=== PATIENT | female | born 1995 | race Caucasian/White ===

== ENCOUNTER 2018-12-04 04:47 | Emergency (ER) | payer OTHER, SELFPAY ==
[2018-12-04 04:59] VITALS: BP 170/137; PULSE 70; RESP 14; TEMP 36.9; O2SAT 95; BMI 19.3
--- NOTE | 2018-12-04 05:07 | DI.US.S_ITS ---
PROCEDURE: US PELVIC COMPLETE INDICATIONS: LEFT SIDED PAIN TECHNIQUE: Real-time scanning was performed of the pelvic organs, with image documentation. Additional endovaginal scanning was necessary due to incomplete visualization of the adnexal and endometrial structures by transabdominal scanning. COMPARISON: None. FINDINGS: Transabdominal scanning: Limited scanning through the kidneys shows no hydronephrosis. No pathologic free abdominal or pelvic fluid. Small amount of physiologic free fluid within the pelvis. Endovaginal scanning: Uterus: Uterus is normal in size at 8.1 x 4.5 x 4.5 cm. The endometrium is not well-seen. An intrauterine device is present. Ovaries: Demonstrate intact arterial flow bilaterally. There is a 46 mm complex nonvascular structure within the right ovary. There is a 57 mm complex nonvascular structure within the left ovary. IMPRESSION: 1. No evidence of acute process. No evidence of portal at the time of the examination. 2. Intrauterine device is in place. 3. Complex bilateral ovarian structures as described above. Given their size, followup ultrasound in 6 weeks is recommended to ensure resolution, and to exclude underlying malignancy. Concordant with preliminary interpretation. Dictated by: Cathie Suarez M.D. on 12/04/2018 at 7:41 Approved by: Cathie Suarez M.D. on 12/04/2018 at 7:43
--- NOTE | 2018-12-04 05:16 | ED.FEMALEGU ---
HPI - Female Genitourinary General Chief complaint: Urogenital-Female Stated complaint: Lower pelvic pain Time Seen by Provider: 12/04/18 04:58 Source: patient Mode of arrival: ambulatory Limitations: no limitations History of Present Illness HPI Narrative: Patient is a 23-year-old who presents with sudden onset left lower quadrant pain. She said last evening she was started doing okay and then it came on suddenly. She took some ibuprofen it did not seem to help. She woke up and her pain is worse. She has no painful or frequent urination. No vaginal bleeding she has an IUD placed. Complaint: pelvic pain Onset (ago): day(s) (1) Location: Q Duration: constant Related Data Home Medications Medication Instructions Recorded Confirmed No Known Home Medications 04/20/18 04/20/18 Allergies Allergy/AdvReac Type Severity Reaction Status Date / Time No Known Drug Allergies Allergy Unverified 04/20/18 15:42 Review of Systems Review of Systems GENERAL: Denies chills, fatigue, malaise, fever, sweats, travel HEENT: Denies sinus pain, ear pain, sore throat, difficulty swallowing, neck pain RESPIRATORY: Denies dyspnea, cough, wheezing, hemoptysis, sputum. CARDIOVASCULAR: Denies chest pain, palpitations, orthopnea, edema GASTROINTESTINAL: See HPI Denies nausea, vomiting, abdominal pain, diarrhea, constipation, melena. : Denies dysuria, frequency, incontinence, hematuria, urinary retention, flank pain. MUSCULOSKELETAL: Denies weakness, joint pain, or bony pain SKIN: No rash, no erythema, no pruritus NEUROLOGIC: Denies weakness, dizziness, headache, numbness, change in speech, confusion PSYCHIATRIC: No concerning psychosocial issues. 12 point review of systems is negative except for those stated above and HPI [facility] Medical History Patient denies significant medical history (Acute) Social History Smoking Status: Never smoker Social History Smoking Status: Never smoker Exam Initial Vital Signs Initial Vital Signs: Vital Signs Temperature 98.4 F 12/04/18 04:59 Pulse Rate 70 12/04/18 04:59 Respiratory Rate 14 12/04/18 04:59 Blood Pressure 170/137 H 12/04/18 04:59 Pulse Oximetry 95 06/15/19 04:59 GENERAL: Well-appearing, well-nourished and in no acute distress. HEENT: Head atraumatic,EOMI, pupils reactive, face symmetric, moist mucous membranes CARDIOVASCULAR: Regular rate and rhythm without murmurs, rubs or gallops. RESPIRATORY: Breath sounds equal bilaterally, no wheezes rales or rhonchi. ABDOMEN: Soft, mild left lower quadrant pain no guarding or rebound EXTREMITIES: Normal range of motion, no clubbing or edema. Neurovascularly intact NEUROLOGICAL: Alert and oriented x4.Normal gait and speech. Cranial nerves II through XII grossly intact. SKIN: Warm, dry, no laceration, no petechiae, no rashes or lesions. Course Orders Ordered: Discontinued Medications Ketorolac Tromethamine (Toradol) 60 mg IM NOW ONE Stop: 12/04/18 05:08 Last Admin: 12/04/18 05:25 Dose: 60 mg Vital Signs - 8 hr 12/04/18 04:59 Temperature 98.4 F Pulse Rate 70 Respiratory Rate 14 Blood Pressure 170/137 H Pulse Oximetry 95 [facility] - Female Genitourinary Lab Data Attestation: I reviewed the patient's lab results. Point of Care Testing Test Results Negative Urine Dip Bedside Urine Glucose Negative Bedside Urine Bilirubin - Negative Bedside Urine Ketone +++ 80 Urine Specific [place] 1.030 Bedside Urine Occult Blood - Negative Bedside Urine pH 6.0 Bedside Urine Protein + 30 Bedside Urine Urobilinogen +/- 1mg Bedside Urine Nitrite - Negative Bedside Urine Leukocytes - Negative Esterase Imaging Data Pelvic ultrasound: Radiologist's impression: castings trimmer report: Bilateral ovarian cystic structures favoring hemorrhagic cyst. Probably present should and intrauterine device. Negative for ovarian torsion. [facility] Narrative Medical decision making narrative: Patient's pain is better after some Toradol. Recommended follow-up ultrasound with PCP or mapping specialist. Discharge Plan Departure Patient Disposition: Home Clinical Impression: Ovarian cyst Qualifiers: Laterality: bilateral Qualified Code(s): N83.201 - Unspecified ovarian cyst, right side Discharge Date/Time: 12/04/18 06:40 Interventions: ED Discharge Assessment Last Done: 12/04/18 06:40 Instructions: Ovarian Cyst Activity Restrictions/Additional Instructions: *You have been diagnosed with bilateral ovarian cyst *What to do: need repeat ultra sound 1-2 months *Continue to take medications as directed Ibuprofen 800 mg every 8 hours if needed for pain *Follow up with your primary care provider in 2-3 days *Return to ER if you should have increasing pain, increased vaginal bleeding [or] any new, worsening or concerning symptoms Prescriptions: No Action No Known Home Medications RF: 0 Referrals: Sweetie Hooper ARNP [Primary Care Provider] -
--- NOTE | 2018-12-04 05:19 | ED_ITS ---
HPI - Female Genitourinary General Chief complaint: Urogenital-Female Stated complaint: Lower pelvic pain Time Seen by Provider: 12/04/18 04:58 Source: patient Mode of arrival: ambulatory Limitations: no limitations History of Present Illness HPI Narrative: Patient is a 23-year-old who presents with sudden onset left lower quadrant pain. She said last evening she was started doing okay and then it came on suddenly. She took some ibuprofen it did not seem to help. She woke up and her pain is worse. She has no painful or frequent urination. No vaginal bleeding she has an IUD placed. Complaint: pelvic pain Onset (ago): day(s) (1) Location: Q Duration: constant Related Data Home Medications Medication Instructions Recorded Confirmed No Known Home Medications 04/20/18 04/20/18 Allergies Allergy/AdvReac Type Severity Reaction Status Date / Time No Known Drug Allergies Allergy Unverified 04/20/18 15:42 Review of Systems Review of Systems GENERAL: Denies chills, fatigue, malaise, fever, sweats, travel HEENT: Denies sinus pain, ear pain, sore throat, difficulty swallowing, neck pain RESPIRATORY: Denies dyspnea, cough, wheezing, hemoptysis, sputum. CARDIOVASCULAR: Denies chest pain, palpitations, orthopnea, edema GASTROINTESTINAL: See HPI Denies nausea, vomiting, abdominal pain, diarrhea, constipation, melena. : Denies dysuria, frequency, incontinence, hematuria, urinary retention, flank pain. MUSCULOSKELETAL: Denies weakness, joint pain, or bony pain SKIN: No rash, no erythema, no pruritus NEUROLOGIC: Denies weakness, dizziness, headache, numbness, change in speech, confusion PSYCHIATRIC: No concerning psychosocial issues. 12 point review of systems is negative except for those stated above and HPI [facility] Medical History Patient denies significant medical history (Acute) Social History Smoking Status: Never smoker Social History Smoking Status: Never smoker Exam Initial Vital Signs Initial Vital Signs: Vital Signs Temperature 98.4 F 12/04/18 04:59 Pulse Rate 70 12/04/18 04:59 Respiratory Rate 14 12/04/18 04:59 Blood Pressure 170/137 H 12/04/18 04:59 Pulse Oximetry 95 06/15/19 04:59 GENERAL: Well-appearing, well-nourished and in no acute distress. HEENT: Head atraumatic,EOMI, pupils reactive, face symmetric, moist mucous membranes CARDIOVASCULAR: Regular rate and rhythm without murmurs, rubs or gallops. RESPIRATORY: Breath sounds equal bilaterally, no wheezes rales or rhonchi. ABDOMEN: Soft, mild left lower quadrant pain no guarding or rebound EXTREMITIES: Normal range of motion, no clubbing or edema. Neurovascularly intact NEUROLOGICAL: Alert and oriented x4.Normal gait and speech. Cranial nerves II through XII grossly intact. SKIN: Warm, dry, no laceration, no petechiae, no rashes or lesions. Course Orders Ordered: Discontinued Medications Ketorolac Tromethamine (Toradol) 60 mg IM NOW ONE Stop: 12/04/18 05:08 Last Admin: 12/04/18 05:25 Dose: 60 mg Vital Signs - 8 hr 12/04/18 04:59 Temperature 98.4 F Pulse Rate 70 Respiratory Rate 14 Blood Pressure 170/137 H Pulse Oximetry 95 [facility] - Female Genitourinary Lab Data Attestation: I reviewed the patient's lab results. Point of Care Testing Test Results Negative Urine Dip Bedside Urine Glucose Negative Bedside Urine Bilirubin - Negative Bedside Urine Ketone +++ 80 Urine Specific [place] 1.030 Bedside Urine Occult Blood - Negative Bedside Urine pH 6.0 Bedside Urine Protein + 30 Bedside Urine Urobilinogen +/- 1mg Bedside Urine Nitrite - Negative Bedside Urine Leukocytes - Negative Esterase Imaging Data Pelvic ultrasound: Radiologist's impression: shift mgr report: Bilateral ovarian cystic structures favoring hemorrhagic cyst. Probably present should and intrauterine device. Negative for ovarian torsion. [facility] Narrative Medical decision making narrative: Patient's pain is better after some Toradol. Recommended follow-up ultrasound with PCP or commercial manager. Discharge Plan Departure Patient Disposition: Home Clinical Impression: Ovarian cyst Qualifiers: Laterality: bilateral Qualified Code(s): N83.201 - Unspecified ovarian cyst, right side Discharge Date/Time: 12/04/18 06:40 Interventions: ED Discharge Assessment Last Done: 12/04/18 06:40 Instructions: Ovarian Cyst Activity Restrictions/Additional Instructions: *You have been diagnosed with bilateral ovarian cyst *What to do: need repeat ultra sound 1-2 months *Continue to take medications as directed Ibuprofen 800 mg every 8 hours if needed for pain *Follow up with your primary care provider in 2-3 days *Return to ER if you should have increasing pain, increased vaginal bleeding [or] any new, worsening or concerning symptoms Prescriptions: No Action No Known Home Medications RF: 0 Referrals: Sweetie Hooper ARNP [Primary Care Provider] -
[2018-12-04] MEDS: KETOROLAC 60 MG/2 ML VIAL IM (05:25)
[2018-12-04 06:40] VITALS: BP 135/75; PULSE 70; RESP 12; O2SAT 98
== END 2018-12-04 06:40 | disposition home or self-care (01) ==
PROVIDERS: Emergency Provider Emergency Medicine; PCP Nurse Practitioner Family
DX: N83.201 Unspecified ovarian cyst, right side (principal)
CPT/HCPCS: 76830; 76856; 81003; 81025; 96372; 99282; 99283; J1885

== ENCOUNTER → 2019-10-20 12:47 | Outpatient (CLI) | payer BC, SELFPAY ==
--- NOTE | 2019-10-20 | DI.US.S_ITS ---
PROCEDURE: US PELVIC COMPLETE INDICATIONS: FOLLOW-UP OVARIAN CYST TECHNIQUE: Real-time scanning was performed of the pelvic organs, with image documentation. Additional endovaginal scanning was necessary due to incomplete visualization of the adnexal and endometrial structures by transabdominal scanning. COMPARISON: [facility], , US PELVIC COMPLETE, 12/04/2018, 5:48. FINDINGS: Transabdominal scanning: Limited scanning through the kidneys shows no hydronephrosis. No pathologic free abdominal or pelvic fluid. Endovaginal scanning: Uterus: Uterus is normal in size at 6.8 x 4.8 x 5.7 cm. The endometrium measures 5.7 mm in combined thickness. There is an IUD in uterine cavity. Ovaries: Right ovary measures 5.1 x 2.4 x 2.1 cm. Left ovary measures 5.2 x 3.3 x 4.3 cm. Multiple ovarian follicles are present bilaterally. There is a 1.7 x 0.9 x 1.0 cm simple cyst in the right ovary. A couple of simple cysts present in the left ovary measuring 2.0 x 2.1 x 2.1 cm and 2.1 x 1.4 x 2.0 cm. Hemorrhagic cysts seen on the last exam in both ovaries are no longer present. IMPRESSION: 1. Resolution of hemorrhagic ovarian cysts. There are several simple cysts in ovaries as described. 2. Ior TE uterus. Dictated by: Jillian Landaverde M.D. on 10/20/2019 at 14:26 Approved by: Jillian Landaverde M.D. on 10/20/2019 at 14:34
== END ==
PROVIDERS: PCP Family Medicine; Referring Provider Family Medicine; Visit Provider Family Medicine
DX: N83.291 Other ovarian cyst, right side (principal); N83.292 Other ovarian cyst, left side; Z97.5 Presence of (intrauterine) contraceptive device
CPT/HCPCS: 76830; 76856

== ENCOUNTER → 2021-12-05 17:26 | Outpatient (CLI) | payer BC, SELFPAY ==
--- NOTE | 2021-12-05 17:31 | DI.RAD.S_ITS ---
PROCEDURE: XR ACUTE ABDOMEN SERIES INDICATIONS: Pelvic pain TECHNIQUE: One view chest and two views of the abdomen were acquired. COMPARISON: None. FINDINGS: Surgical changes and devices: None. Chest: Lungs are clear. Heart size is normal. No pleural effusions. No pneumoperitoneum. Abdomen: Scattered small bowel and colonic gas. No dilated loops of bowel seen. Prominent stool in the colon. No suspicious calcifications. Visualized solid organ contours appear normal. Bones: No suspicious bony lesions. IMPRESSION: No acute cardiopulmonary abnormality. Nonobstructive bowel gas pattern. Prominent stool in the colon. Dictated by: Jayson Aguilar M.D. on 12/06/2021 at 9:35 Approved by: Jayson Aguilar M.D. on 12/06/2021 at 9:45
[2021-12-05 18:37] LABS: Add Manual Diff / Slide Review NO; Basophils Absolute Auto 100 /uL (0-100); Basophils Percent Auto 0.8 % (0-2); Eosinophils Absolute Auto 100 /uL (0-450); Eosinophils Percent Auto 0.6 % (2-4); Hematocrit 36.4 % (36-46); Hemoglobin 12.5 g/dL (12.0-16.0); Lymphocytes Absolute Auto 1600 /uL (1100-4500); Lymphocytes Percent Auto 15.5 % (25-40); Mean Corpuscular HGB Conc 34.3 % (30-36); Mean Corpuscular Hemoglobin 29.5 PG (26-34); Monocytes Absolute Auto 1100 /uL (0-900); Monocytes Percent Auto 10.7 % (3-14); Neutrophils Absolute Auto 7500 /uL (1500-7000); Neutrophils Percent Auto 72.4 % (50-75); Platelet Count 205 X10^3/uL (150-400); Red Blood Cell Count 4.24 X10^6/uL (4.0-5.2); Red Cell Distribution Width 13.2 % (11.6-14.8); White Blood Cell Count 10.4 X10^3/uL (4.5-11.0)
[2021-12-08 15:24] LABS: Alanine Aminotransferase 17 IU/L (<35); Albumin 4.2 g/dL (3.5-5.0); Albumin Globulin Ratio 1.3 (1.0-2.8); Alkaline Phosphatase 56 U/L (38-126); Aspartate Aminotransferase 19 IU/L (14-36); BUN Creatinine Ratio 6.8 (6-22); Bilirubin Total 0.4 mg/dL (0.2-1.3); Blood Urea Nitrogen 4 mg/dL (7-17); Calcium 8.6 mg/dL (8.4-10.2); Carbon Dioxide 27 mmol/L (22-32); Chloride 99 mmol/L (98-107); Estimated Glomerular Filt Rate > 60 mL/min (>60); Globulin 3.2 g/dL (1.7-4.1); Glucose 94 mg/dL (70-100); HEMOLYSIS < 15 (0-50); Potassium 3.6 mmol/L (3.4-5.1); Sodium 137 mmol/L (137-145); Total Protein 7.4 g/dL (6.3-8.2)
[2021-12-08 15:36] LABS: C-Reactive Protein Quant 12.2 mg/dL (<1.0)
[2021-12-08 15:43] LABS: HCG Quantitative /Beta subunit < 2.4 mIU/mL
== END ==
PROVIDERS: PCP Family Medicine; Referring Provider Family Medicine; Visit Provider Family Medicine
DX: R10.9 Unspecified abdominal pain (principal); R10.2 Pelvic and perineal pain; N83.291 Other ovarian cyst, right side
CPT/HCPCS: 36415; 74022; 80053; 84702; 85025; 86140

== ENCOUNTER → 2021-12-11 08:39 | Outpatient (CLI) | payer BC, SELFPAY ==
--- NOTE | 2021-12-11 | DI.US.S_ITS ---
PROCEDURE: US PELVIC COMPLETE INDICATIONS: Pelvic and perineal pain TECHNIQUE: Real-time scanning was performed of the pelvic organs, with image documentation. Additional endovaginal scanning was necessary due to incomplete visualization of the adnexal and endometrial structures by transabdominal scanning. COMPARISON: [facility], , PELVIC COMPLETE, 12/04/2018, 5:48. [facility], , PELVIC COMPLETE, 10/20/2019, 13:11. FINDINGS: Uterus: Uterus is anteverted and normal in size at 9 x 2.9 x 5 cm. The myometrium is homogeneous. The endometrium measures 2.8 mm combined thickness. Ovaries: The right ovary measures 4.7 x 3.7 x 3.3 cm. Within the right ovary, there is a complex nonvascular cyst that measures 2.8 x 2.1 x 2.4 cm. The left ovary measures 2.7 x 2.6 x 2.9 cm. The ovaries have a normal sonographic appearance. Within the right adnexal region, there is a 7.4 x 7.5 x 5 cm nonvascular mass that demonstrates a heterogeneous appearance. Other: No pathologic free abdominal or pelvic fluid. IMPRESSION: Within the right adnexal region, there is a 7.5 cm nonvascular mass. An endometrioma is suspected, although other etiologies are also possible. Right ovarian complex cyst, likely representing a hemorrhagic cyst measuring up to 2.8 cm. If it would be clinically appropriate, a followup pelvic ultrasound could be considered in 6 weeks to assure resolution/ improvement. We strive to produce accurate, complete, and clear reports of imaging services. To assist us in improving patient care, this report was composed using standard report templates and voice recognition software. Therefore, it may contain abnormal punctuation, insertions and/or omissions. Occasional wrong-word or sound-alike substitutions may occur. Though we review the report and make efforts to correct it, we do recommend that the report be read carefully in proper context to recognize any text inaccuracies. Dictated by: Kirill Mendoza M.D. on 12/12/2021 at 15:32 Approved by: Kirill Mendoza M.D. on 12/12/2021 at 15:35
== END ==
PROVIDERS: PCP Family Medicine; Referring Provider Family Medicine; Visit Provider Family Medicine
DX: R10.2 Pelvic and perineal pain (principal); N83.291 Other ovarian cyst, right side; R19.09 Other intra-abdominal and pelvic swelling, mass and lump
CPT/HCPCS: 76830; 76856

== ENCOUNTER → 2021-12-19 07:07 | Outpatient (CLI) | payer BC, SELFPAY ==
[2021-12-19 09:04] LABS: Cancer Antigen 125 85.8 U/mL (0-35)
== END ==
PROVIDERS: PCP Family Medicine; Referring Provider Obstetrics & Gynecology; Visit Provider Obstetrics & Gynecology
DX: N83.209 Unspecified ovarian cyst, unspecified side (principal); N94.89 Other specified conditions associated with female genital organs and menstrual cycle; R10.2 Pelvic and perineal pain
CPT/HCPCS: 36415; 86304

== ENCOUNTER → 2022-01-08 14:59 | Outpatient (CLI) | payer BC, SELFPAY ==
[2022-01-08 16:14] LABS: COVID19 -Nasal RAPID Negative (Negative)
== END ==
PROVIDERS: PCP Family Medicine; Visit Provider Obstetrics & Gynecology
DX: Z01.812 Encounter for preprocedural laboratory examination (principal); Z20.822 Contact with and (suspected) exposure to COVID-19
CPT/HCPCS: 87635

== ENCOUNTER 2022-01-09 08:24 | Day surgery (SDC) | payer BC, SELFPAY ==
[2022-01-03 09:35] VITALS: BMI 20.1
[2022-01-09] VITALS (8 sets, daily range): BP systolic 106–128; BP diastolic 62–83; PULSE 66–95; RESP 10–16; TEMP 36–36.7; O2SAT 80–100; BMI 20.1
--- NOTE | 2022-01-09 | PATH_ITS ---
Note [facility] Accession Number: [id number] TESTS RESULT FLAG UNITS REF RANGE LAB Clinician Provided Cytology Information No. of containers..01 Other (Miscellaneous) Source: PELVIC WASHINGS DIAGNOSIS: PELVIC WASHINGS NEGATIVE FOR MALIGNANT CELLS. THIS INTERPRETATION INCLUDES EVALUATION OF A CELL BLOCK. Pathologist ICD10: 01 N73.9 Signed out by: Joellen Li MD, Pathologist NPI- [id number] Performed by: Juan C Marcelo, Site Inspector ([facility]) Gross description: 30 CC, RED, CLOUDY RECEIVED: FRESH IN ORANGE CAP CONTAINER. /VDU 01/10/[address] [place] [address] FLAG LEGEND: L-Low Normal,H-High Normal,LL-Alert Low,HH-Alert High <-Panic Low,>-Panic High,A-Abnormal,AA-Critical Abnormal Performed at: 01 =Z [facility] [address], [place] [address] Chao Yoo MD, Performed at: 01 [facility] [address], [place], [place] [id number] MD Chao Yoo MD Phone: [phone]
[2022-01-09] MEDS: LACTATED RINGERS 1,000 ML 100 ML IV (09:07)
--- NOTE | 2022-01-09 09:40 | PM.HP.1 ---
History of Present Illness History of Present Illness Date Patient Seen: 01/09/22 Time Patient Seen: 09:42 Chief complaint: RIC Narrative: Patient is a 26-year-old 0 with a right adnexal mass measuring 7.5 cm. She presents for a laparoscopic removal of the right adnexal mass. Patient History Medical History (Updated 01/07/22 @ 21:49 by Karla Sanchez) Ovarian cyst (~2018) Patient denies significant medical history Family & Social History Family History (Updated 01/07/22 @ 21:49 by Karla Sanchez) Grandmother Cancer Social History: household members spouse Tobacco & Substance use: Smoking Status Never smoker alcohol intake current alcohol intake frequency holiday/special occasion Substance Use Type does not use Meds Home Medications and Allergies Home Medications Medication Instructions Recorded Confirmed Type No Known Home Medications 04/20/18 01/03/22 History Allergies Allergy/AdvReac Type Severity Reaction Status Date / Time No Known Drug Allergies Allergy Verified 01/09/22 08:45 Exam Vital Signs (past 8 hours): - 01/09/22 08:50 Temperature 98.1 F Pulse Rate 95 H Respiratory Rate 16 Blood Pressure 117/83 Pulse Oximetry 100 Oxygen Delivery Method Room Air Oxygen Delivery Method Room Air Narrative Exam Narrative: HEENT: No thyromegaly, no anterior cervical or supraclavicular lymphadenopathy. Lungs:Clear to auscultation bilaterally, no wheezes. Cardiovascular: Regular rate and rhythm, no murmurs, rubs, or gallops. Abdomen: No scars. No hepatosplenomegaly. No masses palpable. External genitalia: Normal Vagina: Normal Cervix: Nulliparous Bimanual exam: 6 Week size anterior uterus. Mobile.] Right adnexal fullness and tenderness. Extremities: No edema Assessment & Plan Assessment & Plan narrative: Assessment: 26-year-old 0 with a right adnexal mass consistent with an endometrioma Plan: Laparoscopic removal of the endometrium, possible fulguration of endometriosis, possible chromotubation The risks, benefits, and alternatives to the procedure were explained to the patient. The risks including bleeding, infection, injury to the bowel, bladder, or ureters. She understands these risks and agrees to proceed. A full par Q was held and consent form was signed. COVID-19 COVID-19 status: Negative Result date/Date tested (Pos, Neg/Pending): 01/08/22 Time Spent With Patient Time with patient: less than 30 minutes Critical Care time: I spent a total of [] minutes of critical care time on this patient's care today; this time is exclusive of procedural time.
--- NOTE | 2022-01-09 10:06 | PM.PREOP ---
Pre-operative Note COVID-19 COVID-19 status: Negative Result date/Date tested (Pos, Neg/Pending): 01/08/22 Criteria for continued procedure: Non-surgical alternatives not available or appropriate per current SOC Interval Note History & Physical reviewed/Exam performed by Physician: Yes Changes to H&P: No H&P completed within 30 days and has changed as indicated here:: 01/09/22
[2022-01-09] MEDS: CEFAZOLIN 2 GM/20 ML SYRINGE IV (10:31)
--- NOTE | 2022-01-09 10:43 | SUR.OPER ---
Lithotomy on padded OR bed. [place] Pad Positioner under torso. Head on pillow, arms padded and tucked at sides. Legs secured in padded yellow fins stirrups. Directed and approved by surgeon and PA
[2022-01-09] MEDS: BUPIVACAINE 0.5% (PF) 30 ML, EPINEPHrine 0.15 MG INJ (10:52)
[2022-01-09] MEDS: METHYLENE BLUE 50 MG/10 ML VIAL INJ (11:05)
--- NOTE | 2022-01-09 11:20 | PM.GYNOP.1 ---
Operative Date/Time/Diagnoses Date of procedure: 01/09/22 Time of procedure: 11:20 Pre-op diagnosis: Right adnexal mass Post-op diagnosis: same Procedure & Clinicians Procedure: Procedures Operation Date: 01/09/22 09:45 Actual Procedure Side Surgeon p Laparoscopic Removal of Endometriosis, Fulguration of Endometriosis & chromotubation (inject dye) Estephania Elaine MD Indications: Right adnexal mass Slightly elevated CA-125 Surgeon: Estephania Elaine Ink Grinder: Мария Sanchez Anesthesia Type: General and Local Operative Notes Findings: 12 cm posterior cul dec sac mass adhesed to back of uterus and cul de sac, originating from the left ovary 8 cm right ovarian mass, does not appear cystic No evidence of endometriosis in the ovarian fossa, anterior cul-de-sac, on the appendix, or on the right ovary which could be adequately visualized. Normal appendix Normal liver and gallbladder Closure Type: primary Specimen(s): washings (pelvic) Estimated blood loss (mL): 5 Blood products transfused: none Procedure in detail: After informed consent was obtained, the patient was taken to the operating room where she was placed in the dorsal supine position. After adequate general endotracheal anesthesia was achieved, she was placed in the dorsal lithotomy position, and prepped and draped in the usual sterile fashion. A time-out was performed. A bivalve speculum was placed into the vagina and the anterior lip of the cervix was grasped with a single-tooth tenaculum. The cervical os was sequentially dilated until the Zumi uterine manipulator could pass easily into the endometrial cavity. The single-tooth tenaculum was removed from the anterior lip of the cervix. The bivalve speculum was removed from the vagina. Attention was then turned to the abdomen where 6 cc of 0.5% Marcaine with epinephrine were injected in the umbilical fold. A 5 mm vertical incision was made. The Veress needle was placed into the peritoneal cavity and the placement confirmed by aspiration and drop test. The abdominal cavity was insufflated with 3.0 L of CO2. The Veress needle was removed and a 5 mm trocar was placed without difficulty. Two other incisions were made 4 cm lateral to the umbilicus after 6 cc of 0.5% Marcaine with epinephrine were injected. Two 5 mm trocars were placed under direct visualization. The liver and gallbladder and appendix were visualized and were normal. A probe was placed into the left lateral trocar and the uterus was lifted up. Would appear to be a left ovarian mass that had dropped down behind the uterus was stuck to the posterior uterus. This was gently teased away with the probe. The ovary itself could not be visualized. The left tube was involved in the mass in the posterior cul-de-sac. No endometriosis was seen in the anterior cul-de-sac or on the right tube and ovary. The posterior cul-de-sac mass measured approximately 10 cm. On the right ovary there appear to be a solid mass measuring about 7 cm. This ovary was also stuck to the right pelvic sidewall. Pelvic washings were obtained. A decision was made to close and refer to information lead Oncology due to the risk of a malignancy. The instruments were removed from the abdomen. The CO2 was allowed to escape. The incisions were closed with 4-0 Monocryl in a subcuticular fashion. Steri-Strips and Allevyn dressings were placed. The Zumi uterine manipulator was removed from the uterus. Sponge, lap, and instrument counts were correct x2. The patient tolerated the procedure well, and was taken to PACU in stable condition. Complications: none Post-operative Condition: stable Disposition: PACU Plan for aftercare: Home after recovery
[2022-01-09] MEDS: KETOROLAC 30 MG/ML VIAL IV (11:53)
== END 2022-01-09 13:00 | disposition home or self-care (01) ==
PROVIDERS: PCP Family Medicine; Referring Provider Obstetrics & Gynecology; Visit Provider Obstetrics & Gynecology
PROC: 0U5B4ZZ Destruction of Endometrium, Percutaneous Endoscopic Approach (ICD-10-PCS; CPT 58662; principal; 2022-01-09 09:45)
DX: R19.03 Right lower quadrant abdominal swelling, mass and lump (principal)
CPT/HCPCS: 49320; J0171; J0690; J1885; J2250; J2704; J3010; Q9968

== ENCOUNTER → 2022-01-16 15:33 | Outpatient (CLI) | payer OTHER, SELFPAY ==
[2022-01-16 17:14] LABS: Lactate Dehydrogenase 482 U/L (313-618)
[2022-01-16 17:32] LABS: HCG Quantitative /Beta subunit < 2.4 mIU/mL
[2022-01-17 08:34] LABS: Alpha Fetoprotein 2.7 ng/mL (0.0-4.7)
== END ==
PROVIDERS: PCP Family Medicine; Referring Provider Obstetrics & Gynecology Gynecologic Oncology; Visit Provider Obstetrics & Gynecology Gynecologic Oncology
DX: N83.8 Other noninflammatory disorders of ovary, fallopian tube and broad ligament (principal)
CPT/HCPCS: 36415; 82105; 83520; 83615; 84702

== ENCOUNTER → 2022-01-21 18:54 | Outpatient (CLI) | payer OTHER, SELFPAY ==
--- NOTE | 2022-01-21 19:00 | DI.MRI.S_ITS ---
PROCEDURE: MR PELVIS WO/W CON INDICATIONS: BILATERAL TUBO-OVARIAN MASS TECHNIQUE: Coronal HASTE, sagittal breath-hold T2 FSE; axial T1 FSE with and without fat saturation through the pelvis. Optional long- and short-axis uterine nonbreath-hold T2 FSE through the uterus. Sagittal or axial dynamic VIBE during administration of contrast. Post-contrast axial or coronal VIBE/2-D FLASH with fat saturation from the iliac crests to the symphysis. Optional diffusion weighted imaging and ADC may be performed. COMPARISON: [facility], US, US PELVIC COMPLETE, 12/11/2021, 8:54. FINDINGS: Image quality: Excellent. Uterus: Uterus is normal in size. Normal thickness endometrium and junctional zone. Adnexa: Numerous right ovarian follicles. Ovary is mildly enlarged overall. No dominant mass. Trace intrinsic T1 signal hyperintensity at the superior pole (). Left adnexal complex cystic lesion with T2 shading, loculations, and intrinsic T1 signal hyperintensity measuring 6.1 x 5.4 by 6.1 centimeters. It is difficult to appreciate if there is any enhancing nodule, although none is obvious. The left ovary is not seen separate from this lesion. At the anterolateral aspect of the lesion, there is some extra ovarian intrinsic T1 signal hyperintensity, likely along the fallopian tube. No definite macroscopic fat. Kissing ovaries tethered posteriorly. Urinary system: Bladder wall is normal in thickness. Distal ureters are non distended. Urethra appears normal in morphology. Nodes and vessels: No pelvic or inguinal adenopathy by size criteria. Iliac vessels are normal in size. Bowel and peritoneum: No pathologic free pelvic fluid. Inferior colon and small bowel loops are normal in caliber. Soft tissues: No inguinal hernias. No findings of pelvic floor incompetence in the absence of provocation. Bones: Marrow demonstrates normal overall signal. IMPRESSION: Suspected 6.1 centimeter left ovarian multiloculated endometrioma, punctate foci of deep pelvic endometriosis, and trace left infundibular hematosalpinx. No obvious enhancing nodule, although this is difficult to assess in the setting of intrinsic T1 signal hyperintensity. Differential includes a large hemorrhagic cyst, although this is less likely given persistence from pelvic ultrasound 12/11/2021. Possible small endometrioma or hemorrhagic cyst in a mildly enlarged right ovary. Consider gynecologic consultation for surgical and imaging follow-up. Dictated by: Jef Chappell M.D. on 01/22/2022 at 9:48 Approved by: Jef Chappell M.D. on 01/22/2022 at 10:07
== END ==
PROVIDERS: PCP Family Medicine; Referring Provider Obstetrics & Gynecology Gynecologic Oncology; Visit Provider Obstetrics & Gynecology Gynecologic Oncology
DX: N83.8 Other noninflammatory disorders of ovary, fallopian tube and broad ligament (principal); N80.3 Endometriosis of pelvic peritoneum
CPT/HCPCS: 72197; A9579

== ENCOUNTER → 2022-12-22 12:43 | Outpatient (CLI) | payer OTHER, SELFPAY ==
--- NOTE | 2022-12-22 12:43 | DI.RAD.S_ITS ---
PROCEDURE: HL HYSTEROSAPINGOGRAPHY INDICATIONS: Infertility. Left salpingo-oophorectomy. COMPARISON: MR, MR PELVIS WO/W CON, 01/21/2022, 19:04. US, US PELVIC COMPLETE, 12/11/2021, 8:54. FINDINGS: Patient had a documented negative test prior to the study. Following speculum insertion, a balloon-tip catheter was inserted into the cervical canal, and secured by inflating the balloon. Contrast was then injected into the endometrial canal. Uterus: The uterine cavity appears normal in size and morphology, without synechiae or masses. Fallopian tubes: The right fallopian tubes fill with contrast, and appear normal in caliber and morphology. There is ready dispersion of contrast into the peritoneal cavity. The left fallopian tube is likely, compatible with history of prior surgery. IMPRESSION: 1. Patent right fallopian tube. 2. Left sublingo-oophoectomy. Dictated by: Jillian Landaverde M.D. on 12/22/2022 at 21:22 Approved by: Jillian Landaverde M.D. on 12/22/2022 at 21:26
--- NOTE | 2022-12-24 09:13 | P.PCN_ITS ---
Procedures Date/Time Date of procedure: 12/22/22 Time of procedure: 13:30 General Procedure description: Hysterosalpingogram After informed consent was obtained, the patient was placed on the fluoroscopy table with her bottom on an overturned bedpan. An open sided speculum was placed into the vagina. The cervix was cleaned x3 with Betadine. A single- tooth tenaculum was placed on the anterior lip of the cervix. The HSG catheter passed easily into the endometrial cavity and 3 cc of air were injected. The open sided speculum was removed from the vagina. Under direct fluoroscopic examination, the uterus was injected with Isovue 300 and had normal contours. There was spill from the right tube. The excess contrast was removed from the uterus. The balloon catheter was deflated and the HSG catheter was removed from the uterus. The single-tooth tenaculum was removed from the anterior lip of the cervix. The patient was removed from the overturned bedpan. Sponge, lap, and instrument counts were correct x2. The patient tolerated the procedure well. Complications: none
== END ==
LOC: RAD 12:43
PROVIDERS: PCP Family Medicine; Referring Provider Obstetrics & Gynecology; Visit Provider Obstetrics & Gynecology
DX: Z90.721 Acquired absence of ovaries, unilateral (principal)
CPT/HCPCS: 58340; 74740

== ENCOUNTER → 2023-11-30 13:36 | Outpatient (CLI) | payer OTHER, SELFPAY ==
[2023-11-30 17:58] LABS: Follicle Stimulating Hormone 6.72 mIU/mL; Luteinizing Hormone 10.4 mIU/mL
[2023-12-01 18:37] LABS: Anti Thyroglobulin Antibody <1.0 IU/mL (0.0-0.9); Thyroid Peroxidase Antibodies 15 IU/mL (0-34)
[2023-12-04 05:15] LABS: Dehydroepiandrosterone (DHEA) 211 ng/dL (31-701)
[2023-12-07 00:36] LABS: Percent Free Testosterone 2.24 % (0.50-2.80); Testosterone Free 0.54 ng/dL (0.10-0.85); Testosterone Total 24.1 ng/dL (10.0-55.0)
== END ==
PROVIDERS: PCP Family Medicine; Referring Provider Obstetrics & Gynecology; Visit Provider Obstetrics & Gynecology
DX: N80.9 Endometriosis, unspecified (principal)
CPT/HCPCS: 36415; 82627; 83001; 83002; 83498; 84402; 84403; 86376; 86800

== ENCOUNTER → 2024-03-18 08:15 | Outpatient (CLI) | payer OTHER, SELFPAY ==
[2024-03-18 09:03] LABS: Progesterone, Total 3.51 ng/mL
[2024-03-18 09:19] LABS: Estradiol, Total 78.5 pg/mL
== END ==
PROVIDERS: PCP Family Medicine; Referring Provider Obstetrics & Gynecology; Visit Provider Obstetrics & Gynecology
DX: N80.30 Endometriosis of pelvic peritoneum, unspecified (principal)
CPT/HCPCS: 36415; 82670; 84144

== ENCOUNTER → 2024-03-21 07:25 | Outpatient (CLI) | payer OTHER, SELFPAY ==
[2024-03-21 09:45] LABS: Progesterone, Total 7.88 ng/mL
[2024-03-21 10:01] LABS: Estradiol, Total 91.1 pg/mL
== END ==
PROVIDERS: PCP Family Medicine; Referring Provider Obstetrics & Gynecology; Visit Provider Obstetrics & Gynecology
DX: N80.30 Endometriosis of pelvic peritoneum, unspecified (principal)
CPT/HCPCS: 36415; 82670; 84144

== ENCOUNTER → 2024-03-23 06:59 | Outpatient (CLI) | payer OTHER, SELFPAY ==
[2024-03-23 08:56] LABS: Estradiol, Total 91.8 pg/mL
== END ==
PROVIDERS: PCP Family Medicine; Referring Provider Obstetrics & Gynecology; Visit Provider Obstetrics & Gynecology
DX: N80.30 Endometriosis of pelvic peritoneum, unspecified (principal)
CPT/HCPCS: 36415; 82670; 84144

== ENCOUNTER → 2024-03-25 06:53 | Outpatient (CLI) | payer OTHER, SELFPAY ==
[2024-03-25 09:01] LABS: Progesterone, Total 9.34 ng/mL
[2024-03-25 09:17] LABS: Estradiol, Total 99.9 pg/mL
== END ==
PROVIDERS: PCP Family Medicine; Referring Provider Obstetrics & Gynecology; Visit Provider Obstetrics & Gynecology
DX: N80.30 Endometriosis of pelvic peritoneum, unspecified (principal)
CPT/HCPCS: 36415; 82670; 84144

== ENCOUNTER → 2024-03-28 07:02 | Outpatient (CLI) | payer OTHER, SELFPAY ==
[2024-03-28 09:57] LABS: Progesterone, Total 2.27 ng/mL
[2024-03-28 10:12] LABS: Estradiol, Total 52.9 pg/mL
== END ==
PROVIDERS: PCP Family Medicine; Referring Provider Obstetrics & Gynecology; Visit Provider Obstetrics & Gynecology
DX: N80.30 Endometriosis of pelvic peritoneum, unspecified (principal)
CPT/HCPCS: 36415; 82670; 84144

== ENCOUNTER → 2024-05-09 | Outpatient (CLI) | payer OTHER, SELFPAY ==
--- NOTE | 2024-05-09 06:37 | DI.US.S_ITS ---
PROCEDURE: US FOLLICLE TRANSVAGINAL INDICATIONS: FOLLICLE MONITORING TECHNIQUE: Real-time scanning was performed of the pelvic organs, with image documentation. Additional endovaginal scanning was necessary due to incomplete visualization of the adnexal and endometrial structures by transabdominal scanning. COMPARISON: None. FINDINGS: Uterus: Uterus is retroverted and normal in size at 7.5 x 4.2 x 5.1 cm. The myometrium is homogeneous. The endometrium measures 11 mm combined thickness. Trilaminar appearance of the endometrium. Ovaries: The right ovary measures 4.0 x 5.1 x 2.8 cm, with a calculated ovarian volume of 30 cc. No adnexal mass. Left ovary is surgically absent. Numerous right-sided follicles measuring less than 1 centimeter. Ovarian follicles measuring greater than 1 centimeter are as follows: -1.6 x 1.1 x 1.0 centimeter. -1.2 x 1.1 x 0.8 centimeter. -1.3 x 0.8 x 1.4 centimeter. -1.3 x 0.9 x 1.1 centimeter. Other: No pathologic free abdominal or pelvic fluid. IMPRESSION: Trilaminar appearance of the endometrium. Four follicles measuring greater than 1 centimeter. We strive to produce accurate, complete, and clear reports of imaging services. To assist us in improving patient care, this report was composed using standard report templates and voice recognition software. Therefore, it may contain abnormal punctuation, insertions and/or omissions. Occasional wrong-word or sound-alike substitutions may occur. Though we review the report and make efforts to correct it, we do recommend that the report be read carefully in proper context to recognize any text inaccuracies. Dictated by: Peterson Valdovinos M.D. on 05/09/2024 at 8:51 Approved by: Peterson Valdovinos M.D. on 05/09/2024 at 8:53
== END ==
LOC: US 06:36
PROVIDERS: PCP Family Medicine; Referring Provider Obstetrics & Gynecology; Visit Provider Obstetrics & Gynecology
DX: N80.8 Other endometriosis (principal); R10.2 Pelvic and perineal pain; Z90.721 Acquired absence of ovaries, unilateral
CPT/HCPCS: 76830

== ENCOUNTER → 2024-05-13 06:32 | Outpatient (CLI) | payer OTHER, SELFPAY ==
--- NOTE | 2024-05-13 06:34 | DI.US.S_ITS ---
PROCEDURE: US FOLLICLE TRANSVAGINAL INDICATIONS: follicular monitoring TECHNIQUE: Real-time scanning was performed of the pelvic organs, with image documentation. Additional endovaginal scanning was necessary due to incomplete visualization of the adnexal and endometrial structures by transabdominal scanning. COMPARISON: MR, MR PELVIS WO/W CON, 01/21/2022, 19:04. US, US PELVIC COMPLETE, 12/11/2021, 8:54. [facility], US, US FOLLICLE TRANSVAGINAL, 05/09/2024, 6:51. FINDINGS: Uterus: Uterus is anteverted and normal in size at 7.3 x 6.6 x 4.1 cm. The myometrium is homogeneous. The endometrium measures 11 mm combined thickness. Endometrium has a trilaminar appearance. Ovaries: The right ovary measures 4.7 x 3.9 x 2.6 cm, with a calculated ovarian volume of 2.5 cc. The left ovary is absent. Numerous follicles less than 1 cm. 0.9 x 0.7 x 0.8 cm complex cyst remains unchanged. Right ovarian follicles greater than 1 cm: 2.4 x 2.2 x 1.6 cm, slightly complex 1.3 x 1.1 x 0.8 cm 1.3 x 1.1 x 0.9 cm 0.9 x 0.9 x 0.9 cm Other: No pathologic free abdominal or pelvic fluid. IMPRESSION: Follicle count as above. We strive to produce accurate, complete, and clear reports of imaging services. To assist us in improving patient care, this report was composed using standard report templates and voice recognition software. Therefore, it may contain abnormal punctuation, insertions and/or omissions. Occasional wrong-word or sound-alike substitutions may occur. Though we review the report and make efforts to correct it, we do recommend that the report be read carefully in proper context to recognize any text inaccuracies. Dictated by: Mariana Guevara M.D. on 05/13/2024 at 8:23 Approved by: Mariana Guevara M.D. on 05/13/2024 at 8:27
== END ==
PROVIDERS: PCP Family Medicine; Referring Provider Obstetrics & Gynecology; Visit Provider Obstetrics & Gynecology
DX: N80.8 Other endometriosis (principal); R10.2 Pelvic and perineal pain; Z90.721 Acquired absence of ovaries, unilateral
CPT/HCPCS: 76830

== ENCOUNTER → 2024-05-20 11:07 | Outpatient (CLI) | payer OTHER, SELFPAY ==
[2024-05-20 12:38] LABS: Estradiol, Total 78.6 pg/mL
== END ==
PROVIDERS: PCP Family Medicine; Referring Provider Obstetrics & Gynecology; Visit Provider Obstetrics & Gynecology
DX: E28.8 Other ovarian dysfunction (principal)
CPT/HCPCS: 36415; 82670; 84144

== ENCOUNTER → 2024-06-13 06:32 | Outpatient (CLI) | payer OTHER, SELFPAY ==
--- NOTE | 2024-06-13 06:33 | DI.US.S_ITS ---
PROCEDURE: US FOLLICLE TRANSVAGINAL INDICATIONS: OVARIAN DYSFUNCTION TECHNIQUE: Real-time scanning was performed of the pelvic organs, with image documentation. Additional endovaginal scanning was necessary due to incomplete visualization of the adnexal and endometrial structures by transabdominal scanning. COMPARISON: [facility], US, US FOLLICLE TRANSVAGINAL, 05/13/2024, 6:47. FINDINGS: Uterus: Uterus is retroverted and normal in size at 7.3 x 4.4 x 5.2 cm. The myometrium is homogeneous. The endometrium measures 14.6 mm combined thickness. Normal vascular flow in the uterus and endometrium. Ovaries: The right ovary measures 4.7 x 5.9 x 3.6 cm, with a calculated ovarian volume of 57.4 cc. There are two dominant follicles, the largest measuring 3.3 x 2.8 x 3.5 cm and the next largest measuring 1.5 cm. Tiny amount of mural nodularity in the largest follicle is similar compared to prior. Several other subcentimeter follicles are present. The left ovary is surgically absent. No adnexal masses are seen. Other: No pathologic free abdominal or pelvic fluid. IMPRESSION: Increased size of a dominant right ovarian follicle with slight complexity. There is one other follicle greater than 1 cm in size. Several other subcentimeter follicles are present. We strive to produce accurate, complete, and clear reports of imaging services. To assist us in improving patient care, this report was composed using standard report templates and voice recognition software. Therefore, it may contain abnormal punctuation, insertions and/or omissions. Occasional wrong-word or sound-alike substitutions may occur. Though we review the report and make efforts to correct it, we do recommend that the report be read carefully in proper context to recognize any text inaccuracies. Dictated by: Carmela Rodriguez M.D. on 06/13/2024 at 12:38 Approved by: Carmela Rodriguez M.D. on 06/13/2024 at 12:43
== END ==
LOC: US 06:33
PROVIDERS: PCP Family Medicine; Referring Provider Obstetrics & Gynecology; Visit Provider Obstetrics & Gynecology
DX: E28.8 Other ovarian dysfunction (principal)
CPT/HCPCS: 76830

== ENCOUNTER → 2024-06-21 14:25 | Outpatient (CLI) | payer OTHER, SELFPAY ==
[2024-06-21 15:47] LABS: Estradiol, Total 66.1 pg/mL
== END ==
LOC: LAB 14:29
PROVIDERS: PCP Family Medicine; Referring Provider Obstetrics & Gynecology; Visit Provider Obstetrics & Gynecology
DX: E28.8 Other ovarian dysfunction (principal)
CPT/HCPCS: 36415; 82670; 84144

== ENCOUNTER → 2024-06-30 06:31 | Outpatient (CLI) | payer OTHER, SELFPAY ==
--- NOTE | 2024-06-30 06:33 | DI.US.S_ITS ---
PROCEDURE: US FOLLICLE TRANSVAGINAL INDICATIONS: OVARIAN DYSFUNCTION TECHNIQUE: Real-time scanning was performed of the pelvic organs, with image documentation. Additional endovaginal scanning was necessary due to incomplete visualization of the adnexal and endometrial structures by transabdominal scanning. COMPARISON: [facility], US, US FOLLICLE TRANSVAGINAL, 06/13/2024, 6:41. FINDINGS: Uterus: Uterus is retroverted and normal in size at 7.5 x 6.1 x 4.0 cm. The myometrium is homogeneous. The endometrium measures 7 mm combined thickness. Ovaries: The right ovary measures 5.1 x 2.9 x 2.2 cm. There is an irregularly-shaped thick-walled cyst with internal echogenicity measuring 1.8 x 0.9 x 1.2 cm. Numerous additional follicles measuring less than 1 cm. The left ovary is surgically absent. Other: No pathologic free abdominal or pelvic fluid. IMPRESSION: Irregularly shaped thick-walled cyst with internal echogenicity in the right ovary measuring up to 1.8 cm, may represent a hemorrhagic cyst. No other cysts greater than 1 cm. Numerous follicles less than 1 cm. We strive to produce accurate, complete, and clear reports of imaging services. To assist us in improving patient care, this report was composed using standard report templates and voice recognition software. Therefore, it may contain abnormal punctuation, insertions and/or omissions. Occasional wrong-word or sound-alike substitutions may occur. Though we review the report and make efforts to correct it, we do recommend that the report be read carefully in proper context to recognize any text inaccuracies. Dictated by: Regino Van M.D. on 06/30/2024 at 8:30 Approved by: Regino Van M.D. on 06/30/2024 at 8:32
== END ==
PROVIDERS: PCP Family Medicine; Referring Provider Obstetrics & Gynecology; Visit Provider Obstetrics & Gynecology
DX: N80.8 Other endometriosis (principal); R10.2 Pelvic and perineal pain; N83.201 Unspecified ovarian cyst, right side; Z90.721 Acquired absence of ovaries, unilateral
CPT/HCPCS: 76830

== ENCOUNTER → 2024-07-15 06:32 | Outpatient (CLI) | payer OTHER, SELFPAY ==
--- NOTE | 2024-07-15 06:33 | DI.US.S_ITS ---
PROCEDURE: US FOLLICLE TRANSVAGINAL INDICATIONS: ENDOMETRIOSIS / PELVIC AND PERINEAL PAIN TECHNIQUE: Real-time scanning was performed of the pelvic organs, with image documentation. Additional endovaginal scanning was necessary due to incomplete visualization of the adnexal and endometrial structures by transabdominal scanning. COMPARISON: [facility], US FOLLICLE TRANSVAGINAL, 06/30/2024, 6:38. [facility], US FOLLICLE TRANSVAGINAL, 06/13/2024, 6:41. [facility], US FOLLICLE TRANSVAGINAL, 05/13/2024, 6:47. [facility], US FOLLICLE TRANSVAGINAL, 05/09/2024, 6:51. FINDINGS: Uterus: Uterus is retroverted and normal in size at 7.1 x 4.3 x 4.9 cm. The myometrium is homogeneous. The endometrium measures 17 mm in combined thickness. Ovaries: The right ovary measures 5.2 x 6.5 x 3.6 cm for a volume of 64.2 mL. Multiple follicles are present within the right ovary. There is also a 4.3 x 3.1 x 4.3 cm thick-walled ovarian hypoechoic lesion with internal reticulations. The left ovary is surgically absent. Other: No pathologic free abdominal or pelvic fluid. IMPRESSION: 1. No acute sonographic abnormality of the uterus. 2. Left ovarian 4.3 cm lesion, likely representing a hemorrhagic cyst. In the setting of endometriosis, this may also represent an endometrioma complicated by recurrent hemorrhage. We strive to produce accurate, complete, and clear reports of imaging services. To assist us in improving patient care, this report was composed using standard report templates and voice recognition software. Therefore, it may contain abnormal punctuation, insertions and/or omissions. Occasional wrong-word or sound-alike substitutions may occur. Though we review the report and make efforts to correct it, we do recommend that the report be read carefully in proper context to recognize any text inaccuracies. Dictated by: Ramirez Jacobs M.D. on 07/18/2024 at 8:36 Approved by: Ramirez Jacobs M.D. on 07/18/2024 at 9:03
== END ==
PROVIDERS: PCP Family Medicine; Referring Provider Obstetrics & Gynecology; Visit Provider Obstetrics & Gynecology
DX: N80.8 Other endometriosis (principal); R10.2 Pelvic and perineal pain; N83.8 Other noninflammatory disorders of ovary, fallopian tube and broad ligament
CPT/HCPCS: 76830

== ENCOUNTER → 2024-07-20 07:28 | Outpatient (CLI) | payer OTHER, SELFPAY ==
[2024-07-20 09:12] LABS: Estradiol, Total 153.8 pg/mL
== END ==
PROVIDERS: PCP Family Medicine; Referring Provider Obstetrics & Gynecology; Visit Provider Obstetrics & Gynecology
DX: E28.8 Other ovarian dysfunction (principal)
CPT/HCPCS: 36415; 82670; 84144

== ENCOUNTER → 2024-08-19 07:06 | Outpatient (CLI) | payer OTHER, SELFPAY | PROVIDERS: PCP Family Medicine; Referring Provider Obstetrics & Gynecology; Visit Provider Obstetrics & Gynecology | DX: N80.9 Endometriosis, unspecified (principal) | CPT/HCPCS: 36415; 82670; 84144 ==

== ENCOUNTER → 2024-09-19 08:09 | Outpatient (CLI) | payer OTHER, SELFPAY ==
[2024-09-19 17:08] LABS: Estradiol, Total 116.4 pg/mL
== END ==
PROVIDERS: PCP Family Medicine; Referring Provider Obstetrics & Gynecology; Visit Provider Obstetrics & Gynecology
DX: N80.9 Endometriosis, unspecified (principal)
CPT/HCPCS: 36415; 82670; 84144

== ENCOUNTER → 2024-10-20 16:02 | Outpatient (CLI) | payer OTHER, SELFPAY ==
[2024-10-20 18:03] LABS: Estradiol, Total 68.6 pg/mL
== END ==
PROVIDERS: PCP Family Medicine; Referring Provider Obstetrics & Gynecology; Visit Provider Obstetrics & Gynecology
DX: N80.9 Endometriosis, unspecified (principal)
CPT/HCPCS: 36415; 82670; 84144

== ENCOUNTER → 2024-11-21 07:03 | Outpatient (CLI) | payer OTHER, SELFPAY ==
[2024-11-21 08:27] LABS: Estradiol, Total 93.6 pg/mL
== END ==
PROVIDERS: PCP Family Medicine; Referring Provider Obstetrics & Gynecology; Visit Provider Obstetrics & Gynecology
DX: N80.9 Endometriosis, unspecified (principal)
CPT/HCPCS: 36415; 82670; 84144

== ENCOUNTER → 2025-05-05 14:38 | Outpatient (CLI) | payer OTHER, SELFPAY ==
--- NOTE | 2025-05-05 14:39 | DI.US.S_ITS ---
PROCEDURE: US OB <= 14 WEEKS FETUS INDICATIONS: DATING/VIABILITY OUTSIDE/PRIOR DATING DATA: Last menstrual period (LMP): 03/14/2025 LMP-based estimated date of delivery (YARELI): 12/19/2025. First dating scan (date and location): 05/05/2025. Estimated date of delivery (YARELI) from first dating scan: 12/23/2025. TECHNIQUE: Real-time scanning was performed of the fetus and maternal pelvic organs, with image documentation. Endovaginal scanning was also performed to better visualize the fetus and maternal ovaries. COMPARISON: None. FINDINGS: Embryo: [place]-rump length measures 9 mm corresponding to 6 weeks 6 days. Heart rate: 139 Maternal organs: Left ovary surgically absent. Greater than 12 subcentimeter right follicular cysts IMPRESSION: 1. 6 week 6 day single living IUP corresponding to ultrasound YARELI of 12/23/2025. Dictated by: Meliton NIXON Interpreted: Jef Chappell MD on 05/08/2025 at 9:41 Transcribed by: BRAIN on 05/08/2025 at 9:45 Approved by: Jef Chappell M.D. on 05/09/2025 at 13:03
== END ==
LOC: US 14:38
PROVIDERS: PCP Family Medicine; Referring Provider Family Medicine; Visit Provider Family Medicine
DX: Z32.01 Encounter for pregnancy test, result positive (principal); Z3A.01 Less than 8 weeks gestation of pregnancy; Z90.721 Acquired absence of ovaries, unilateral
CPT/HCPCS: 76801; 76817

== ENCOUNTER → 2025-05-09 07:00 | Outpatient (CLI) | payer OTHER, SELFPAY ==
[2025-05-09 07:58] LABS: Progesterone, Total 27.20 ng/mL
== END ==
PROVIDERS: PCP Family Medicine; Referring Provider Obstetrics & Gynecology; Visit Provider Obstetrics & Gynecology
DX: E34.9 Endocrine disorder, unspecified (principal)
CPT/HCPCS: 36415; 84144

== ENCOUNTER → 2025-06-02 14:34 | Outpatient (CLI) | payer OTHER, SELFPAY ==
[2025-06-02 18:18] LABS: Urine N gonorrhoeae NOT DETECTED
[2025-06-02 18:25] LABS: Urine Chlamydia NOT DETECTED
== END ==
PROVIDERS: PCP Family Medicine; Visit Provider Obstetrics & Gynecology
DX: Z11.3 Encounter for screening for infections with a predominantly sexual mode of transmission (principal)
CPT/HCPCS: 87491; 87591

== ENCOUNTER → 2025-06-02 15:05 | Outpatient (CLI) | payer OTHER, SELFPAY ==
[2025-06-02 15:49] LABS: Add Manual Diff / Slide Review NO; Hematocrit 39.3 % (36-46); Hemoglobin 13.4 g/dL (12.0-16.0); Lymphocytes Absolute Auto 2000 /uL (1100-4500); Mean Corpuscular HGB Conc 34.2 % (30-36); Mean Corpuscular Hemoglobin 29.9 PG (26-34); Mean Corpuscular Volume 87.3 fL (80-100); Platelet Count 239 X10^3/uL (150-400)
[2025-06-02 16:13] LABS: Natera Collection Specimen Collected
[2025-06-03 16:25] LABS: Hepatitis B Surface Antigen NEGATIVE s/c (NEGATIVE)
[2025-06-03 16:43] LABS: HIV 1 & 2 Ab/Ag 4th Gen Combo NEGATIVE (NEGATIVE); Hep C Virus Ab w/Reflex Quant NEGATIVE s/c (NEGATIVE)
== END ==
PROVIDERS: PCP Family Medicine; Referring Provider Obstetrics & Gynecology; Visit Provider Obstetrics & Gynecology
DX: O09.899 Supervision of other high risk pregnancies, unspecified trimester (principal); Z36.0 Encounter for antenatal screening for chromosomal anomalies
CPT/HCPCS: 36415; 80055; 86787; 86803; 86850; 86900; 86901; 87086; 87389